=== PATIENT | male | born 1995 | race Caucasian/White ===

== ENCOUNTER 2017-10-08 19:10 | Emergency (ER) | payer OTHER ==
[~2017-10-08] VITALS: Ht 170.2 cm; Wt 90.0 kg
[2017-10-08] MEDS ORDERED: IV NORMAL SALINE 1,000ML 1,000 ML IV SCH (19:34)
--- NOTE | 2017-10-08 19:38 | PHYS DOC ---
Adult General Chief Complaint Chief Complaint: ABDOMINAL PAIN HPI HPI Patient is a 21 year old male who presents with complaint of right-sided abdominal pain. Patient states his pain is been present over the past 2-3 days. Patient states the pain is been constant. Patient describes the pain as sharp and states that it worsens with movement. Patient states that while perfectly rest his pain is 0 out of 10, however with any movement of the right upper extremity or at the torso, his pain goes up to 9 out of 10. Patient denies any associated fever, nausea, vomiting, or change in stool habits. Patient has not taken any medications for symptoms. Patient denies any significant past medical history. Patient states that he did engage in binge drinking a day prior to onset of symptoms but states that he has not had any trouble with daily use of alcohol. Review of Systems Review of Systems Constitutional: Denies fever or chills [] Eyes: Denies change in visual acuity, redness, or eye pain [] HENT: Denies nasal congestion or sore throat [] Respiratory: Denies cough or shortness of breath [] Cardiovascular: Denies chest pain or edema[] GI: Abdominal pain, denies nausea, vomiting, bloody stools or diarrhea [] : Denies dysuria or hematuria [] Musculoskeletal: Denies back pain or joint pain [] Integument: Denies rash or skin lesions [] Neurologic: Denies headache, focal weakness or sensory changes [] All other systems were reviewed and found to be within normal limits, except as documented in this note. Allergies Allergies Allergies Coded Allergies Type Severity Reaction Last Updated Verified No Known Drug Allergies 10/08/17 No Physical Exam Physical Exam Constitutional: Alert, afebrile, appears in no acute distress. [] HENT: Normocephalic, atraumatic, bilateral external ears normal, oropharynx moist, no oral exudates, nose normal. [] Eyes: PERRLA, EOMI, conjunctiva normal, no discharge. [] Neck: Normal range of motion, no tenderness, supple, no stridor. [] Cardiovascular:Heart rate regular rhythm, no murmur [] Lungs & Thorax: Bilateral breath sounds clear to auscultation [] Abdomen: Bowel sounds normal, soft, right upper quadrant tenderness to palpation with mild guarding, no rebound tenderness no masses, no pulsatile masses. [] Skin: Warm, dry, no erythema, no rash. [] Back: No tenderness, no CVA tenderness. [] Extremities: No tenderness, no cyanosis, no clubbing, ROM intact, no edema. [] Neurologic: Alert and oriented X 3, normal motor function, normal sensory function, no focal deficits noted. [] Current Patient Data Vital Signs Vital Signs Date Time Temp Pulse Resp B/P (MAP) Pulse Ox O2 Delivery O2 Flow Rate FiO2 10/08/17 20:02 18 97 Room Air 10/08/17 19:16 98.4 61 Lab Results Laboratory Tests Test 10/08/17 16:45 10/08/17 21:27 White Blood Count 9.0 x10^3/uL Red Blood Count 4.91 x10^6/uL Hemoglobin 16.1 g/dL Hematocrit 45.6 % Mean Corpuscular Volume 93 fL Mean Corpuscular Hemoglobin 33 pg Mean Corpuscular Hemoglobin Concent 35 g/dL Red Cell Distribution Width 13.2 % Platelet Count 210 x10^3/uL Neutrophils (%) (Auto) 55 % Lymphocytes (%) (Auto) 34 % Monocytes (%) (Auto) 7 % Eosinophils (%) (Auto) 4 % Basophils (%) (Auto) 1 % Neutrophils # (Auto) 4.9 x10^3uL Lymphocytes # (Auto) 3.0 x10^3/uL Monocytes # (Auto) 0.7 x10^3/uL Eosinophils # (Auto) 0.3 x10^3/uL Basophils # (Auto) 0.1 x10^3/uL Sodium Level 141 mmol/L Potassium Level 4.1 mmol/L Chloride Level 104 mmol/L Carbon Dioxide Level 31 mmol/L Anion Gap 6 Blood Urea Nitrogen 15 mg/dL Creatinine 0.9 mg/dL Estimated GFR (Cockcroft-Gault) 106.5 BUN/Creatinine Ratio 17 Glucose Level 107 mg/dL Calcium Level 9.0 mg/dL Total Bilirubin 0.3 mg/dL Aspartate Amino Transf (AST/SGOT) 16 U/L Alanine Aminotransferase (ALT/SGPT) 39 U/L Alkaline Phosphatase 95 U/L Total Protein 7.6 g/dL Albumin 4.1 g/dL Albumin/Globulin Ratio 1.2 Lipase 172 U/L Urine Collection Type Unknown Urine Color Yellow Urine Clarity Clear Urine pH 6.5 Urine Specific [place] 1.020 Urine Protein Neg Urine Glucose (UA) Neg mg/dL Urine Ketones (Stick) Neg mg/dL Urine Blood Trace Urine Nitrite Neg Urine Bilirubin Neg Urine Urobilinogen Dipstick 0.2 mg/dL Urine Leukocyte Esterase Neg Urine RBC 0 /HPF Urine WBC Rare /HPF Urine Squamous Epithelial Cells Occ /LPF Urine Bacteria 0 /HPF Urine Opiates Screen Neg Urine Methadone Screen Neg Urine Barbiturates Neg Urine Phencyclidine Screen Neg Urine Amphetamine/Methamphetamine Neg Urine Benzodiazepines Screen Neg Urine Cocaine Screen Neg Urine Cannabinoids Screen Neg Urine Ethyl Alcohol Neg Current Medications Medications (Trade) Dose Ordered Sig/Dayne Route PRN Reason Start Time Stop Time Status Last Admin Dose Admin Fentanyl Citrate (Fentanyl 2ml Vial) 50 mcg PRN Q15MIN PRN IV PAIN GREATER THAN 3/10 10/08/17 19:45 10/09/17 19:44 10/08/17 20:02 Sodium Chloride 1,000 ml @ 1,000 mls/hr Q1H IV 10/08/17 19:34 10/08/17 20:33 DC 10/08/17 19:55 Ondansetron HCl (Zofran) 4 mg 1X ONCE IV 10/08/17 19:45 10/08/17 19:46 DC 10/08/17 19:58 Sodium Chloride 1,000 ml @ 1,000 mls/hr 1X ONCE IV 10/08/17 21:30 10/08/17 22:29 10/08/17 20:57 Ketorolac Tromethamine (Toradol) 30 mg 1X ONCE IV 10/08/17 21:15 10/08/17 21:16 DC 10/08/17 21:13 EKG EKG Not performed[] Radiology/Procedures Radiology/Procedures [address] [address] IMAGING REPORT Signed PATIENT: FAITH HUIZAR ACCOUNT: [id number] : 1995 LOCATION: ER AGE: 21 SEX: M EXAM STATUS: REG ER ORD. PHYSICIAN: JESSEE ARREOLA MD REASON: right upper quadrant abdominal pain PROCEDURE: ABDOMEN LTD ABDOMEN LTD History: Right upper quadrant pain for 2 days Comparison: None. Findings: Multiple sonographic images of the abdomen are submitted. Pancreas is not well-visualized due to bowel gas. Inferior vena cava is segmentally visualized. Hepatic echotexture is within normal limits, no focal hepatic lesion demonstrated. Right lobe liver measured 14.2 cm longitudinal. Gallbladder is present without intraluminal abnormality, wall thickening, pericholecystic fluid. Right kidney measured 10.8 x 4.9 x 4.5 cm, no hydronephrosis. Impression: 1. No significant abnormality is demonstrated. Pancreas is not well-visualized due to bowel gas. Electronically signed by: Boo Valdovinos MD (10/08/2017 8:48 PM) [facility] DICTATED AND SIGNED BY: BOO VALDOVINOS MD DATE: 10/08/172045 CC: JESSEE ARREOLA MD; PCP,UNKNOWN ~ [] Course & Med Decision Making Course & Med Decision Making Pertinent Labs and Imaging studies reviewed. (See chart for details) Patient is treated with IV fluids, fentanyl, Zofran, and Toradol. On reevaluation, patient symptoms have improved. Lab work and imaging are unremarkable at this time. Patient symptoms may be secondary to deep intercostal muscle strain versus possible gastritis symptoms. The patient will be treated with ibuprofen, Pepcid, and Flexeril for outpatient treatment. Advised follow-up in 3-4 days primary doctor for reevaluation and return to emergency department for any worsening symptoms.[] Dragon Disclaimer Dragon Disclaimer This electronic medical record was generated, in whole or in part, using a voice recognition dictation system. Departure Departure: Impression: Primary Impression: Abdominal pain Disposition: 01 HOME, SELF-CARE Condition: IMPROVED Referrals: PCP,UNKNOWN (PCP) Patient Instructions: Abdominal Pain (Nonspecific) Additional Instructions: Follow-up with your primary doctor in 3-4 days for reevaluation. Return to the emergency department for any worsening symptoms. Scripts Famotidine (PEPCID) 20 Mg Tablet 1 TAB PO BID, #30 TAB 0 Refills Prov: JESSEE ARREOLA MD 10/08/17 Ibuprofen (IBUPROFEN) 600 Mg Tablet 600 MG PO Q6HRS PRN for PAIN, #30 TAB Prov: JESSEE ARREOLA MD 10/08/17 Cyclobenzaprine Hcl (CYCLOBENZAPRINE HCL) 10 Mg Tablet 1 TAB PO TID PRN for MUSCLE SPASMS, #20 TAB Prov: JESSEE ARREOLA MD 10/08/17 Problem Qualifiers Primary Impression: Abdominal pain Abdominal location: right upper quadrant Qualified Codes: R10.11 - Right upper quadrant pain JESSEE ARREOLA MD Oct 08, 2017 19:38
[2017-10-08] MEDS ORDERED: ONDANSETRON PF 4 MG/2 ML VIAL. IV ONE (19:45)
[2017-10-08 20:08] LABS: BASO # 0.1 x10^3/uL (0.0-0.2); BASO % 1 % (0-3); EOS # 0.3 x10^3/uL (0.0-0.7); EOS % 4 % (0-3); HEMATOCRIT 45.6 % (39.0-53.0); HEMOGLOBIN 16.1 g/dL (13.0-17.5); LYMPH % 34 % (24-48); MEAN CORPUSCULAR HEMOGLOBIN 33 pg (25-35); MEAN CORPUSCULAR HGB CONC 35 g/dL (31-37); MEAN CORPUSCULAR VOLUME 93 fL (79-100); MONO # 0.7 x10^3/uL (0.0-1.1); MONO % 7 % (0-9); NEUT # 4.9 x10^3uL (1.8-7.7); NEUT % 55 % (31-73); PLATELET COUNT 210 x10^3/uL (140-400); RED BLOOD COUNT 4.91 x10^6/uL (4.30-5.70); RED CELL DISTRIBUTION WIDTH 13.2 % (11.5-14.5)
[2017-10-08 20:20] LABS: ALBUMIN 4.1 g/dL (3.4-5.0); ALBUMIN/GLOBULIN RATIO 1.2 (1.0-1.7); CREATININE 0.9 mg/dL (0.7-1.3); GFR 106.5; POTASSIUM 4.1 mmol/L (3.5-5.1); TOTAL BILIRUBIN 0.3 mg/dL (0.2-1.0); TOTAL PROTEIN 7.6 g/dL (6.4-8.2)
--- NOTE | 2017-10-08 20:51 | RAD ---
ABDOMEN LTD History: Right upper quadrant pain for 2 days Comparison: None. Findings: Multiple sonographic images of the abdomen are submitted. Pancreas is not well-visualized due to bowel gas. Inferior vena cava is segmentally visualized. Hepatic echotexture is within normal limits, no focal hepatic lesion demonstrated. Right lobe liver measured 14.2 cm longitudinal. Gallbladder is present without intraluminal abnormality, wall thickening, pericholecystic fluid. Right kidney measured 10.8 x 4.9 x 4.5 cm, no hydronephrosis. Impression: 1. No significant abnormality is demonstrated. Pancreas is not well-visualized due to bowel gas. Electronically signed by: Justin Sullivan MD (10/08/2017 8:48 PM) [facility]
[2017-10-08] MEDS ORDERED: KETOROLAC 30 MG/ML VIAL. IV ONE (21:15)
[2017-10-08] MEDS ORDERED: IV NORMAL SALINE 1,000ML 1,000 ML IV ONE (21:30)
[2017-10-08 21:51] LABS: BARBITURATES NEG (NEG); BENZODIAZEPINES NEG (NEG); CANNABINOIDS NEG (NEG); COCAINE NEG (NEG); METHADONE NEG (NEG); OPIATES NEG (NEG); PHENCYCLIDINE NEG (NEG)
[2017-10-08 21:54] LABS: AMPHETAMINE/METHAMPHETAMINE NEG (NEG)
[2017-10-08 22:01] LABS: BILIRUBIN,URINE NEG (NEG); CLARITY,URINE CLEAR; COLOR,URINE YELLOW; GLUCOSE,URINE NEG (NEG)
[2017-10-08 22:02] LABS: BACTERIA,URINE 0 /HPF (0-FEW); NITRITE,URINE NEG (NEG); RBC,URINE 0 /HPF (0-2); SQUAMOUS EPITHELIAL CELL,UR OCC /LPF; UROBILINOGEN,URINE 0.2 mg/dL (0.2 mg/dL); WBC,URINE RARE /HPF (0-4)
[2017-10-08] MEDS ORDERED: IBUP600T16 PO (22:21)
[2017-10-08] MEDS ORDERED: FAMO-63 PO (22:21)
[2017-10-08] MEDS ORDERED: CYCL-331 PO (22:21)
[2017-10-08 23:12] VITALS: BP 114/65
== END 2017-10-08 23:12 | disposition home or self-care (01) ==
LOC: ER 19:10
DX: R10.11 Right upper quadrant pain (principal)
CPT/HCPCS: 36415; 76705; 80053; 80307; 81001; 83690; 85025; 96374; 96375; 99285; J1885; J2405; J3010; G0479; J7030